=== PATIENT | male | born 2005 | race Caucasian/White ===

== ENCOUNTER 2024-10-27 17:58 | Emergency (ER) | payer OTHER ==
[2024-10-27] MEDS ORDERED: methylPREDNISolone Sod Succ/PF 125 MG/2 ML VIAL ONE (19:19)
== END 2024-10-27 19:38 | disposition home or self-care (01) ==
LOC: ERS 17:58
DX: J06.9 Acute upper respiratory infection, unspecified (principal)
CPT/HCPCS: 71046; 87428; 96372; J2919